=== PATIENT | male | born 1960 | race Caucasian/White ===

== ENCOUNTER 2019-06-22 10:17 | Day surgery (SDC) | payer OTHER ==
[~2019-06-22] VITALS: Ht 180.3 cm; Wt 109.1 kg
[2019-06-22] MEDS ORDERED: ROSU40TA4 (10:24)
[2019-06-22] MEDS ORDERED: TOUJ1.2I (10:24)
[2019-06-22] MEDS ORDERED: DULE100A (10:24)
[2019-06-22] MEDS ORDERED: HUMA50IN4 (10:24)
[2019-06-22] MEDS ORDERED: ASPI81TA85 PO (10:24)
[2019-06-22] MEDS ORDERED: JANU100T (10:24)
[2019-06-22] MEDS ORDERED: VENTAER (10:24)
[2019-06-22] MEDS ORDERED: GLIP10TA6 (10:24)
[2019-06-22] MEDS ORDERED: ZOLP5TAB (10:24)
[2019-06-22] MEDS ORDERED: LISI-538 (10:24)
[2019-06-22] MEDS ORDERED: METF10004 (10:24)
[2019-06-22] MEDS ORDERED: ONDANSETRON 4MG/2ML VIAL (J2405) IV ONE (10:45)
[2019-06-22] MEDS ORDERED: NS 1,000 ML IV ONE (10:45)
[2019-06-22] MEDS ORDERED: KETOROLAC 30 MG/ML VIAL (J1885) IV ONE ×2 (11:00→16:00)
[2019-06-22 11:05] LABS: BASO # 0.1 10^3/uL (0.0-0.2); BASO % 0.4 % (0.0-1.0); EOS # 0.1 10^3/uL (0.0-0.5); EOS % 0.8 % (0.0-3.0); HEMATOCRIT 47.8 % (42.0-52.0); HEMOGLOBIN 14.8 g/dl (13.5-17.5); LYMPH # 2.3 10^3/uL (1.5-5.0); LYMPH % 17.1 % (24.0-44.0); MEAN CORPUSCULAR HEMOGLOBIN 27.7 pg (27.0-33.0); MEAN CORPUSCULAR VOLUME 89.5 fl (80.0-96.0); MONO # 0.8 10^3/uL (0.0-0.8); MONO % 6.1 % (0.0-5.0); NEUTROPHILS # 9.9 10^3/uL (1.5-8.5); NEUTROPHILS % 75.4 % (36.0-66.0); PLATELET COUNT, AUTOMATED 263 10^3/uL (150-450); RED BLOOD COUNT 5.34 10^6/uL (4.30-6.10); WHITE BLOOD COUNT 13.2 10^3/uL (4.0-10.0)
[2019-06-22 11:31] LABS: ALT/SGPT 28 U/L (12-78); BILIRUBIN,DIRECT 0.2 MG/DL (0.0-0.2); BLOOD UREA NITROGEN 14 MG/DL (7-18); CALCIUM LEVEL 9.2 MG/DL (8.5-10.1); CARBON DIOXIDE LEVEL 32 MEQ/L (21-32); CHLORIDE LEVEL 101 MEQ/L (98-107); CREATININE FOR GFR 1.06 MG/DL (0.70-1.30); GLOMERULAR FILTRATION RATE > 60.0 (>56); GLUCOSE, FASTING 249 MG/DL (70-100); LIPASE 75 U/L (73-393); POTASSIUM SERUM 4.3 MEQ/L (3.5-5.1); SODIUM LEVEL 141 MEQ/L (136-145); TOTAL PROTEIN 7.6 GM/DL (6.4-8.2)
[2019-06-22] MEDS ORDERED: PIPERACILLIN/TAZOBACTAM SOD 3.375 GM in D5W MINI-BAG PLUS 50 ML IV ONE (12:30)
[2019-06-22] MEDS ORDERED: ONDANSETRON 4MG/2ML VIAL (J2405) IV PRN ×2 (12:45→20:00)
--- NOTE | 2019-06-22 12:47 | HPEPDOC ---
General Surgery H&P Date of Admission Jun 22, 2019 Attending Physician: NETTA BADILLO MD History and Physical CHIEF COMPLAINT: Abdominal pain HISTORY OF PRESENT ILLNESS: Patient presents himself to the ER today with complaints of overnight history of right flank pain radiating to his groin area with subjective sensation of chills but no fever, nausea or vomiting. Patient reports this started last night, was not feeling well and had to get up multiple times out of bed and to make himself feel comfortable. By the time he woke up this morning that he felt better and he went out to eat but as the morning progressed the pain worsened prompting him to visit the emergency room. Patient denies any prior episodes similar symptoms. He reports mild nausea with the pain. ALLERGIES: Please see below. HOME MEDICATIONS: Please see below. PAST MEDICAL HISTORY: 1. Diabetes. 2. Moderate obesity BMI of 34 3. COPD 4. Hypertension 5. Hypercholesterolemia PAST SURGICAL HISTORY: 1. Carpal tunnel surgery, right. PERSONAL/SOCIAL HISTORY: Denies smoking, alcohol use, or recreational drug use. REVIEW OF SYSTEMS: GENERAL: Denies chills, fatigue, fever, weight gain and weight loss. HEENT: Denies blurred vision and double vision. Denies ear symptoms. Denies hoarseness. NECK: Denies any neck pain. CARDIOVASCULAR: Denies chest pain and palpitations. MUSCULOSKELETAL: Denies arthralgias, back pain and thrombophlebitis. SKIN: Denies rash. NEUROLOGIC: Denies headache, stroke and transient ischemic attack PSYCHIATRIC: Denies anxiety and depression. ENDOCRINE: Patient with diabetes on insulin and oral anti-hypoglycemics. His blood sugar is elevated. HEMATOLOGY/ONCOLOGY: Denies any bleeding or clotting disorder. HEART: Denies any chest pains, palpitations, paroxysmal dyspnea, orthopnea. PULMONARY: Diagnosed with COPD uses his inhaler once or twice a month during exacerbations. He is able to carry on regular activities without any CVA or discomfort. GASTROINTESTINAL: Denies rectal bleeding, family history of colon cancer, constipation, diarrhea, dysphagia, heartburn and jaundice. GENITOURINARY: Denies dysuria, frequency, hematuria and nocturia. ENDOCRINE: Denies polydipsia, polyphagia, polyuria, heat or cold intolerance. INFECTIOUS: Denies any recent upper respiratory tract infection, UTI, need for use of antibiotics. NUTRITION: Reports fair appetite. PHYSICAL EXAMINATION: VITAL SIGNS: Please see below. GENERAL APPEARANCE: Patient seen, anxious, mildly uncomfortable. Awake, alert, oriented. HEENT: Normocephalic, atraumatic. [place] palpebral conjunctivae. Anicteric sclerae. Lips moist. CHEST: No chest wall abnormalities. Normal respiratory motion/effort. NECK: Supple. No thyromegaly. No lymphadenopathies. LUNGS: Lung sounds are clear to auscultation bilaterally. No wheezing appreciated. HEART: No chest wall abnormalities. Heart rate and rhythm are regular with no murmurs. ABDOMEN: Patient is a very rounded abdomen, tense. Tender on palpation on the right lateral abdominal wall with moderate guarding. Nontender on the other side of the abdomen. SKIN: Warm, moist. EXTREMITIES: Extremities have no deformities. No edema identified. NEUROLOGICAL: Awake, alert, oriented. ANCILLARIES: . LABORATORY DATA: Please see below. MICROBIOLOGY: Please see below. IMAGING: Noncontrast CT abdomen and pelvis Evidence for acute appendicitis IMPRESSION AND PLAN: Acute appendicitis with localized peritonitis Patient's history and clinical exam consistent with acute appendicitis most likely retrocecal appendix given the location of the pain and tenderness. He was advised that he needs surgery. Unfortunately 8 breakfast at about 9:30 AM. Aspirin after speaking to anesthesia able to him at 5:30 tonight. He'll continue him on IV Zosyn every 6 hours for coverage for the appendicitis while awaiting surgery. I saw him in the preoperative holding area and explained to him the details of the surgery, expected postoperative course. He has received 1 dose of Zosyn and is about due for another dose of Zosyn which will give during the surgery. Length of antibiotics depend on whether this is perforated or not. Consent obtained from the patient. Vital Signs Vital Signs Date Time Temp Pulse Resp B/P (MAP) Pulse Ox O2 Delivery O2 Flow Rate FiO2 06/22/19 10:46 06/22/19 10:17 97.9 100 18 98 Room Air Laboratory Data Labs 24H Laboratory Tests 2 06/22/19 10:41: Immature Granulocyte % (Auto) 0.2, Neutrophils (%) (Auto) 75.4H, Lymphocytes (%) (Auto) 17.1L, Monocytes (%) (Auto) 6.1H, Eosinophils (%) (Auto) 0.8, Basophils (%) (Auto) 0.4, Neutrophils # (Auto) 9.9H, Lymphocytes # (Auto) 2.3, Monocytes # (Auto) 0.8, Eosinophils # (Auto) 0.1, Basophils # (Auto) 0.1, Nucleated Red Blood Cells % (auto) 0.0, Urine Color YELLOW, Urine Appearance CLEAR, Urine pH 5.0, Urine Specific [place] 1.023, Urine Protein 1+H, Urine Glucose (UA) 3+H, Urine Ketones NEGATIVE, Urine Blood NEGATIVE, Urine Nitrite NEGATIVE, Urine Bilirubin NEGATIVE, Urine Urobilinogen 0.2, Urine Leukocyte Esterase NEGATIVE, Urine WBC (Auto) 0, Urine RBC (Auto) 1, Urine Hyaline Casts (Auto) 0, Urine Bact eria (Auto) NEGATIVE, Urine Squamous Epithelial Cells 1, Urine Mucus (Auto) SMALL, Urine Sperm (Auto) , Anion Gap 8, Glomerular Filtration Rate > 60.0, Calcium Level 9.2, Total Bilirubin 1.0, Direct Bilirubin 0.2, Aspartate Amino Transf (AST/SGOT) 12, Alanine Aminotransferase (ALT/SGPT) 28, Alkaline Phosphatase 55, Total Protein 7.6, Albumin 4.0, Albumin/Globulin Ratio 1.11, Lipase 75 CBC/BMP Laboratory Tests 06/22/19 10:41 Home Medications Scheduled Aspirin (Aspir 81) 81 Mg Tablet.dr, 1 TAB PO DAILY for pain, (Reported) Miscellaneous Medications Albuterol Sulfate (Ventolin Hfa) 18 Gm Hfa.aer.ad, (Reported) Glipizide (Glipizide) 10 Mg Tablet, (Reported) Insulin Glargine,Hum.rec.anlog (Torin Mantilla) 300 Unit/1 Ml Insuln.pen, (Reported) Insulin Lispro (Humalog Kwikpen U-200) 200 Unit/1 Ml Insuln.pen, (Reported) Lisinopril (Lisinopril) 20 Mg Tablet, (Reported) Metformin HCl (Metformin HCl) 1,000 Mg Tablet, (Reported) Mometasone/Formoterol (Dulera 100 Mcg/5 Mcg Inhaler) 13 Gm Hfa.aer.ad, (Reported) Rosuvastatin Calcium (Rosuvastatin Calcium) 40 Mg Tablet, (Reported) Sitagliptin Phosphate (Januvia) 100 Mg Tablet, (Reported) Zolpidem Tartrate (Zolpidem Tartrate) 5 Mg Tablet, (Reported) Allergies Coded Allergies: No Known Allergies (Unverified , 06/22/19) A-FIB/CHADSVASC A-FIB History Current/History of A-Fib/PAF?: No Current PO Anticoag Therapy: No NETTA BADILLO MD Jun 22, 2019 12:47
[2019-06-22] MEDS: LR 1,000 ML IV SCH (13:41)
[2019-06-22] MEDS ORDERED: MORPHINE 4 MG/ML 1ML VIAL/SYRINGE (J2270) IV PRN (14:15)
[2019-06-22 14:30] VITALS: BP 180/88
[2019-06-22] MEDS ORDERED: LIDOCAINE 1% MDV 20ML VIAL As Ordered ONE (16:58)
[2019-06-22] MEDS ORDERED: BUPIVACAINE HCL 0.25% 10 ML VIAL As Ordered ONE (16:58)
[2019-06-22] MEDS ORDERED: ROCURONIUM BROMIDE 50 MG/5 ML VIAL As Ordered ONE (17:11)
[2019-06-22] MEDS ORDERED: LIDOCAINE 2% INJ 100 MG/5 ML SDV (FOR ANES.) As Ordered ONE (17:11)
[2019-06-22] MEDS ORDERED: PROPOFOL 200 MG/20 ML VIAL As Ordered ONE (17:11)
[2019-06-22] MEDS ORDERED: ONDANSETRON 4MG/2ML VIAL (J2405) As Ordered ONE (17:12)
[2019-06-22] MEDS ORDERED: fentaNYL 100 MCG/2 ML INJECTION (J3010) As Ordered ONE ×2 (17:12→18:35)
[2019-06-22] MEDS ORDERED: MIDAZOLAM INJ 2 MG/2 ML VIAL (J2250) As Ordered ONE (17:12)
[2019-06-22] MEDS ORDERED: dexameTHASONE 4 MG/ML 1ML VIAL (J1100) As Ordered ONE (17:12)
[2019-06-22] MEDS ORDERED: ZOSYN 3.375 GM VIAL (J2543) As Ordered ONE (17:31)
[2019-06-22] MEDS ORDERED: SUCCINYLCHOLINE 100 MG/5 ML SYRINGE (J0330) As Ordered ONE (17:44)
[2019-06-22] MEDS: PIPERACILLIN/TAZOBACTAM SOD 3.375 GM in D5W MINI-BAG PLUS 50 ML IV SCH (17:58)
[2019-06-22] MEDS ORDERED: PHENYLephrine HCL 500 MCG/5 ML (100MCG/ML) SYRINGE (J2370) As Ordered ONE (18:03)
[2019-06-22] MEDS ORDERED: GLYCOPYRROLATE INJ 0.2 MG/ML 2 ML VIAL As Ordered ONE (18:17)
[2019-06-22] MEDS ORDERED: ePHEDrine SULFATE 25 MG/5 ML(5MG/ML) SYRINGE As Ordered ONE (18:19)
[2019-06-22] MEDS ORDERED: ACETAMINOPHEN 1000MG 100ML IV BTL (OFIRMEV) (J0131 PER 10MG) As Ordered ONE (19:02)
[2019-06-22] MEDS ORDERED: SUGAMMADEX SODIUM 500 MG/5 ML VIAL (BRIDION) As Ordered ONE (19:02)
[2019-06-22] MEDS ORDERED: GLUCOSE 4 GM CHEW TABLET PO PRN (19:15)
[2019-06-22] MEDS ORDERED: GLUCAGON FOR INJ 1 MG VIAL (J1610) SC PRN (19:15)
[2019-06-22] MEDS ORDERED: DEXTROSE 50% 50 ML SYRINGE IV PRN (19:15)
--- NOTE | 2019-06-22 19:20 | ROOPDOC ---
[facility] Report Of Operation Report of Operation DATE OF PROCEDURE: 06/22/19 PREPROCEDURE DIAGNOSES: acute appendicitis. POSTPROCEDURE DIAGNOSES: acute appendicitis, retrpceca; appendix. PROCEDURE: Laparoscopic Appendectomy. SURGEON: Govind Craig MD [employer] FABRICATOR: MD ANESTHESIA: General Anesthesia ESTIMATED BLOOD LOSS: Approximately 20 mL. COMPLICATIONS: none. REMARKS: . PROCEDURE NOTE: retrocecal appendix. DESCRIPTION OF PROCEDURE: . GOVIND CRAIG MD Jun 22, 2019 19:20
[2019-06-22] MEDS ORDERED: ALBUTEROL 6.7GM INHALER **FOR ANES. CART/OMNICELL ONLY As Ordered ONE (19:33)
[2019-06-22] MEDS ORDERED: fentaNYL 100 MCG/2 ML INJECTION (J3010) IV PRN (20:00)
[2019-06-22] MEDS ORDERED: LR 1,000 ML IV SCH (20:00)
[2019-06-22] MEDS ORDERED: HYDROMORPHONE HCL 0.5 MG/ 0.5 ML SYRINGE (J1170 PER 1) IV PRN (20:00)
[2019-06-22] MEDS ORDERED: PERCOCET 5MG/325MG TAB PO PRN (20:00)
[2019-06-22] MEDS ORDERED: LEVALBUTEROL 1.25 MG/0.5 ML CONCENTRATE NEB As Ordered ONE (20:03)
[2019-06-22] MEDS ORDERED: LEVALBUTEROL 1.25 MG/0.5 ML CONCENTRATE NEB INH ONE (20:15)
[2019-06-22 20:30] VITALS: BP 124/66
[2019-06-22 21:00] VITALS: BP 117/75
[2019-06-22 21:30] VITALS: BP 148/82
[2019-06-22 22:30] VITALS: BP 136/72
[2019-06-22] MEDS ORDERED: ALBUTEROL SULFATE 2.5 MG/0.5 ML INH NEB SOLN NEB PRN (22:30)
[2019-06-22 23:30] VITALS: BP 121/69
[2019-06-23] MEDS: PERCOCET 5MG/325MG TAB PO PRN ×3 (00:20→12:20)
[2019-06-23 01:30] VITALS: BP 137/74
[2019-06-23] MEDS: PIPERACILLIN/TAZOBACTAM SOD 3.375 GM in D5W MINI-BAG PLUS 50 ML IV SCH ×2 (01:48→06:46)
[2019-06-23] MEDS: KETOROLAC 30 MG/ML VIAL (J1885) IV PRN ×2 (03:05→10:02)
[2019-06-23 05:30] VITALS: BP 126/68
[2019-06-23 06:40] LABS: BASO % 0.1 % (0.0-1.0); HEMATOCRIT 42.2 % (42.0-52.0); HEMOGLOBIN 13.2 g/dl (13.5-17.5); LYMPH # 1.1 10^3/uL (1.5-5.0); LYMPH % 8.9 % (24.0-44.0); MEAN CORPUSCULAR HEMOGLOBIN 28.3 pg (27.0-33.0); MEAN CORPUSCULAR HGB CONC 31.3 g/dl (32.0-36.5); MEAN CORPUSCULAR VOLUME 90.6 fl (80.0-96.0); MONO # 0.5 10^3/uL (0.0-0.8); MONO % 4.1 % (0.0-5.0); NEUTROPHILS # 10.5 10^3/uL (1.5-8.5); NEUTROPHILS % 86.5 % (36.0-66.0); PLATELET COUNT, AUTOMATED 245 10^3/uL (150-450); RED BLOOD COUNT 4.66 10^6/uL (4.30-6.10); WHITE BLOOD COUNT 12.1 10^3/uL (4.0-10.0)
[2019-06-23 06:55] LABS: CALCIUM LEVEL 9.1 MG/DL (8.5-10.1); CREATININE FOR GFR 1.46 MG/DL (0.70-1.30); GLOMERULAR FILTRATION RATE 52.8 (>56); POTASSIUM SERUM 4.8 MEQ/L (3.5-5.1)
[2019-06-23] MEDS ORDERED: HumaLOG INSULIN (NovoLOG) PER UNIT SC SCH ×3 (07:30→21:00)
[2019-06-23] MEDS: LR 1,000 ML IV SCH ×2 (07:38→10:03)
--- NOTE | 2019-06-23 07:43 | REP ---
REASON: Right flank pain. The exam is limited by lack of intravenous and oral bowel preparatory contrast administration. The lung bases are clear. There is no nephroureterolithiasis, hydronephrosis, or hydroureter. There are no urinary bladder calcifications. Limited evaluation of the solid intraabdominal organs and gallbladder show no gross abnormalities. Limited evaluation of the pancreas and adrenal glands show no gross abnormalities. There is no free fluid or free air in the abdomen. The appendix is abnormally dilatated with evidence of abnormal wall thickening. There is abnormal thickening of the right lateroconal fascia with thickening of Gerota's and Zuckerkandl's fascia on the right as well. There is no intestinal obstruction. Limited evaluation of the abdominal aorta and paraaortic regions showed no gross abnormalities. CT PELVIS: There is no free fluid or free air. There is no evidence of a mass or adenopathy. Bone window technique throughout the exam shows the osseous structures to be within normal limits for the patient's age. IMPRESSION: Acute appendicitis. Electronically Signed by Jack Muñoz DO 06/23/2019 08:59 A
[2019-06-23 08:00] VITALS: BP 167/74
[2019-06-23] MEDS ORDERED: metFORMIN (GLUCOPHAGE) 1000 MG TABLET PO SCH (08:00)
[2019-06-23] MEDS ORDERED: SITagliptin 50 MG TAB (JANUVIA) PO SCH (09:00)
[2019-06-23] MEDS ORDERED: lisinopriL 20 MG TAB PO SCH (09:00)
[2019-06-23 10:03] VITALS: BP 134/76
[2019-06-23] MEDS ORDERED: PERCOCET PO (11:44)
[2019-06-23] MEDS ORDERED: AUGM875T28 PO (11:44)
== END 2019-06-23 12:45 | disposition home or self-care (01) ==
LOC: M ED 10:17 → M SDC 10:18 → M PED 14:20 → M SDC 06-23 12:45
PROVIDERS: ATTEND Surgery
DX: K35.890 Other acute appendicitis without perforation or gangrene (principal); C7A.020 Malignant carcinoid tumor of the appendix; E11.9 Type 2 diabetes mellitus without complications; I10 Essential (primary) hypertension; J44.9 Chronic obstructive pulmonary disease, unspecified; E78.00 Pure hypercholesterolemia, unspecified; E66.8 Other obesity; Z79.4 Long term (current) use of insulin; Z79.82 Long term (current) use of aspirin; Z79.84 Long term (current) use of oral hypoglycemic drugs; Z79.899 Other long term (current) drug therapy
CPT/HCPCS: 36415; 44970; 74176; 80048; 80076; 81001; 83690; 85025; 88304; 96365; 96366; 96375; 96376; 99284; J0131; J0330; J1100; J1885; J2250; J2270; J2370; J2405; J2543; J3010

== ENCOUNTER → 2020-11-11 | Outpatient (REF) | payer OTHER ==
[~2020-11-11] MED LIST: ASPI81TA86 PO; AUGM875T28 PO; DULE100A; GLIP10TA6; HUMA50IN4; JANU100T; LISI20TA33; METF10004; PERCOCET PO; ROSU40TA4; TOUJ1.2I; VENTAER; ZOLP5TAB
[2020-11-13 08:13] LABS: LDL DIRECT 88 mg/dL (0-99)
== END ==
LOC: M LAB REF 16:03
PROVIDERS: ATTEND Nurse Practitioner Adult Health
DX: E11.65 Type 2 diabetes mellitus with hyperglycemia (principal); E78.00 Pure hypercholesterolemia, unspecified

== ENCOUNTER → 2021-02-17 | Outpatient (CLI) | payer OTHER ==
--- NOTE | 2021-02-17 20:47 | REP ---
INDICATION: RIGHT SIDED PAIN COMPARISON: None. TECHNIQUE: PA and lateral. FINDINGS: The mediastinum and cardiac silhouette are normal. The lung bradford are clear and without acute consolidation, effusion, or pneumothorax. The skeletal structures are intact and normal. IMPRESSION: No acute cardiopulmonary process. <Electronically signed by Bolivar Barrera > 02/17/21 3881
== END ==
LOC: M WUC 14:13
PROVIDERS: ATTEND Nurse Practitioner Adult Health
DX: R07.89 Other chest pain (principal)

== ENCOUNTER 2022-04-25 16:20 | Emergency (ER) | payer OTHER ==
[~2022-04-25] VITALS: Ht 175.3 cm; Wt 103.6 kg
[2022-04-25] MEDS ORDERED: PREG50CA2 PO (16:33)
[2022-04-25] MEDS ORDERED: MONT10TA97 PO (16:33)
[2022-04-25] MEDS ORDERED: BREO1INH INH (16:33)
[2022-04-25 21:02] LABS: BASO # 0.1 10^3/uL (0.0-0.2); BASO % 0.7 % (0.0-1.0); EOS # 0.2 10^3/uL (0.0-0.5); EOS % 1.8 % (0.0-3.0); HEMOGLOBIN 13.8 g/dl (13.5-17.5); LYMPH % 43.4 % (24.0-44.0); MEAN CORPUSCULAR HEMOGLOBIN 28.3 pg (27.0-33.0); MEAN CORPUSCULAR HGB CONC 32.1 g/dl (32.0-36.5); MEAN CORPUSCULAR VOLUME 88.3 fl (80.0-96.0); MONO # 0.8 10^3/uL (0.0-0.8); MONO % 8.5 % (2.0-8.0); NEUTROPHILS # 4.2 10^3/uL (1.5-8.5); NEUTROPHILS % 45.3 % (36.0-66.0); PLATELET COUNT, AUTOMATED 254 10^3/uL (150-450); RED BLOOD COUNT 4.87 10^6/uL (4.30-6.10); WHITE BLOOD COUNT 9.2 10^3/uL (4.0-10.0)
[2022-04-25 21:25] LABS: BLOOD UREA NITROGEN 15 MG/DL (7-18); CARBON DIOXIDE LEVEL 30 MEQ/L (21-32); CHLORIDE LEVEL 105 MEQ/L (98-107); CREATININE FOR GFR 0.98 MG/DL (0.70-1.30); GLOMERULAR FILTRATION RATE > 60.0 (>49); GLUCOSE, FASTING 226 MG/DL (70-100); POTASSIUM SERUM 4.2 MEQ/L (3.5-5.1); SODIUM LEVEL 139 MEQ/L (136-145)
[2022-04-25] MEDS ORDERED: NORCO, ANEXSIA 5/325MG TABLET (HYDROcodone/ACETAMINOPHEN) PO ONE (22:30)
[2022-04-25] MEDS ORDERED: HYDR-3713 PO (22:42)
[2022-04-25 22:53] VITALS: BP 158/78
== END 2022-04-25 22:54 | disposition home or self-care (01) ==
LOC: M ED 16:20
DX: S92.414A Nondisplaced fracture of proximal phalanx of right great toe, initial encounter for closed fracture (principal); S90.421A Blister (nonthermal), right great toe, initial encounter; E11.9 Type 2 diabetes mellitus without complications; J44.9 Chronic obstructive pulmonary disease, unspecified; I10 Essential (primary) hypertension; Z79.4 Long term (current) use of insulin; Z79.84 Long term (current) use of oral hypoglycemic drugs; Z79.899 Other long term (current) drug therapy; Z79.51 Long term (current) use of inhaled steroids; Z79.82 Long term (current) use of aspirin

== ENCOUNTER → 2022-05-04 | Outpatient (CLI) | payer OTHER ==
[~2022-05-04] MED LIST changes: +BREO1INH INH; +HYDR-3713 PO; +MONT10TA97 PO; +PREG50CA2 PO
== END ==
LOC: M SOG 07:49
PROVIDERS: ATTEND Orthopaedic Surgery
DX: S92.411A Displaced fracture of proximal phalanx of right great toe, initial encounter for closed fracture (principal); X58.XXXA Exposure to other specified factors, initial encounter; Y92.9 Unspecified place or not applicable; Y93.9 Activity, unspecified; Y99.9 Unspecified external cause status

== ENCOUNTER → 2022-05-18 | Outpatient (CLI) | payer OTHER | LOC: M SOG 10:12 | PROVIDERS: ATTEND Orthopaedic Surgery | DX: S92.411D Displaced fracture of proximal phalanx of right great toe, subsequent encounter for fracture with routine healing (principal) ==

== ENCOUNTER → 2022-06-10 | Outpatient (CLI) | payer OTHER | LOC: M SOG 08:13 | PROVIDERS: ATTEND Orthopaedic Surgery | DX: S92.411D Displaced fracture of proximal phalanx of right great toe, subsequent encounter for fracture with routine healing (principal) ==

== ENCOUNTER → 2022-07-11 | Outpatient (CLI) | payer OTHER | LOC: M SOG 07:49 | PROVIDERS: ATTEND Orthopaedic Surgery | DX: S92.411D Displaced fracture of proximal phalanx of right great toe, subsequent encounter for fracture with routine healing (principal) ==

== ENCOUNTER → 2023-03-14 | Outpatient (CLI) | payer OTHER ==
[~2023-03-14] MED LIST changes: -DULE100A; +MOME13HF8; -PREG50CA2 PO; +PREG50CA3 PO
== END ==
LOC: M WUC 08:57
PROVIDERS: ATTEND Student in an Organized Health Care Education/Training Program
DX: M54.50 Low back pain, unspecified (principal); M47.817 Spondylosis without myelopathy or radiculopathy, lumbosacral region

== ENCOUNTER → 2023-11-24 | Outpatient (CLI) | payer OTHER ==
[~2023-11-24] MED LIST changes: +GASTROGRAFIN SOLUTION 30ML As Ordered ONE; +ISOVUE-370 76% 100ML VIAL As Ordered ONE; -ROSU40TA4; +ROSU40TA63
== END ==
LOC: M RAD 13:19
PROVIDERS: ATTEND Nurse Practitioner Adult Health
DX: R10.31 Right lower quadrant pain (principal)
CPT/HCPCS: 74178; Q9963; Q9967

== ENCOUNTER 2024-01-10 06:55 | Day surgery (SDC) | payer OTHER ==
[~2024-01-10] VITALS: Ht 177.8 cm; Wt 105.6 kg
[~2024-01-10 06:55] MED LIST changes: +ASPI-226 PO; -GASTROGRAFIN SOLUTION 30ML As Ordered ONE; -GLIP10TA6; +GLIP10TA6 PO; -HUMA50IN4; +HUMA50IN4 SC; -ISOVUE-370 76% 100ML VIAL As Ordered ONE; -LISI20TA33; +LISI20TA33 PO; +LOPE2TAB12 PO; -METF10004; +METF10004 PO; +PANT40TA29 PO; -ROSU40TA63; +ROSU40TA63 PO; +SEMA2PEN SC; +SLOWTAB2 PO; -TOUJ1.2I; +TOUJ1.2I SC; -VENTAER; +VENTAER INH; -ZOLP5TAB; +ZOLP5TAB PO
[2024-01-10] MEDS ORDERED: LIDOCAINE 2% 100MG/5ML SDV (FOR ANES.) As Ordered ONE (07:05)
[2024-01-10] MEDS ORDERED: propofoL 200 MG/20 ML VIAL As Ordered ONE (07:05)
[2024-01-10] MEDS: NS 1,000 ML IV ONE (07:41)
[2024-01-10] MEDS: INSULIN LISPRO (NovoLOG) PER UNIT SC PRN (07:41)
[2024-01-10 08:21] VITALS: TEMP 98.7
[2024-01-10 08:40] VITALS: BP 182/88; O2SAT 98
== END 2024-01-10 08:53 | disposition home or self-care (01) ==
LOC: M OPP 06:55
PROVIDERS: ATTEND Surgery
DX: K63.89 Other specified diseases of intestine (principal); Z85.030 Personal history of malignant carcinoid tumor of large intestine; R19.7 Diarrhea, unspecified; E11.9 Type 2 diabetes mellitus without complications; G47.30 Sleep apnea, unspecified; Z99.89 Dependence on other enabling machines and devices; Z87.891 Personal history of nicotine dependence; Z79.02 Long term (current) use of antithrombotics/antiplatelets; Z79.4 Long term (current) use of insulin; Z79.51 Long term (current) use of inhaled steroids; Z79.52 Long term (current) use of systemic steroids; Z79.891 Long term (current) use of opiate analgesic; Z79.899 Other long term (current) drug therapy
CPT/HCPCS: 45380; 88305; J1815

== ENCOUNTER → 2024-01-11 | Outpatient (CLI) | payer OTHER | LOC: M WUC 11:21 | PROVIDERS: ATTEND Nurse Practitioner Adult Health | DX: M54.50 Low back pain, unspecified (principal) ==

== ENCOUNTER → 2024-02-10 | Outpatient (CLI) | payer OTHER ==
[~2024-02-10] MED LIST changes: +AMOX875T2 PO; +METO1TAB7
== END ==
LOC: M RAD 12:56
PROVIDERS: ATTEND Nurse Practitioner Adult Health
DX: M54.50 Low back pain, unspecified (principal); M47.816 Spondylosis without myelopathy or radiculopathy, lumbar region; M47.817 Spondylosis without myelopathy or radiculopathy, lumbosacral region

== ENCOUNTER 2024-02-11 10:34 | Emergency (ER) | payer OTHER ==
[~2024-02-11] VITALS: Ht 175.3 cm; Wt 105.5 kg
[~2024-02-11 10:34] MED LIST changes: -AMOX875T2 PO; -METO1TAB7
[2024-02-11] MEDS ORDERED: METO1TAB7 (10:49)
[2024-02-11 11:26] LABS: VENOUS BASE EXCESS 1.5 (-2.0-2.0); VENOUS HCO3 29.1 MMOL/L (23.0-27.0); VENOUS O2 SATURATION 42.2 % (60.0-80.0); VENOUS PARTIAL PRESSURE CO2 58.8 mmHg (38.0-50.0); VENOUS PARTIAL PRESSURE O2 25.1 mmHg (30.0-50.0); VENOUS PH 7.313 UNITS (7.330-7.430); VENOUS STANDARD HCO3 24.4 MMOL/L; VENOUS TOTAL CO2 30.9 MMOL/L (24.0-28.0)
[2024-02-11 11:36] LABS: BASO % 0.5 % (0.0-1.0); EOS # 0.1 10^3/uL (0.0-0.5); HEMATOCRIT 41.1 % (42.0-52.0); HEMOGLOBIN 13.9 g/dl (13.5-17.5); LYMPH # 2.3 10^3/uL (1.5-5.0); LYMPH % 28.7 % (24.0-44.0); MEAN CORPUSCULAR HEMOGLOBIN 29.8 pg (27.0-33.0); MEAN CORPUSCULAR HGB CONC 33.8 g/dl (32.0-36.5); MEAN CORPUSCULAR VOLUME 88.2 fl (80.0-96.0); MONO # 0.6 10^3/uL (0.0-0.8); MONO % 7.6 % (2.0-8.0); PLATELET COUNT, AUTOMATED 230 10^3/uL (150-450); RED BLOOD COUNT 4.66 10^6/uL (4.30-6.10)
[2024-02-11 11:45] LABS: ERYTHROCYTE SEDIMENTATION RATE 47 mm/hr (0-20)
[2024-02-11 11:57] LABS: ALBUMIN 3.8 G/DL (3.2-5.2); ALKALINE PHOSPHATASE 72 U/L (46-116); ALT/SGPT 38 U/L (7.0-40); AST/SGOT 24 U/L (<34); BLOOD UREA NITROGEN 12 MG/DL (9-23); CALCIUM LEVEL 8.9 MG/DL (8.3-10.6); CARBON DIOXIDE LEVEL 32 MMOL/L (20-31); CHLORIDE LEVEL 105 MMOL/L (98-107); CREATININE FOR GFR 0.94 MG/DL (0.70-1.30); GLOMERULAR FILTRATION RATE > 60.0 (>49); GLUCOSE, FASTING 195 MG/DL (74-106); POTASSIUM SERUM 3.5 MMOL/L (3.5-5.1); SODIUM LEVEL 139 MMOL/L (136-145); TOTAL PROTEIN 7.2 G/DL (5.7-8.2)
[2024-02-11 12:00] LABS: HEMOGLOBIN A1c 9.9 % (4.0-6.0)
[2024-02-11] MEDS: PIPERACILLIN/TAZOBACTAM SOD 3.375 GM in D5W MINI-BAG PLUS 50 ML IV ONE (13:15)
[2024-02-11] MEDS ORDERED: AMOX875T2 PO (14:51)
[2024-02-11 15:04] VITALS: BP 177/79; TEMP 95; O2SAT 96
== END 2024-02-11 15:14 | disposition home or self-care (01) ==
LOC: M ED 10:34
DX: L03.116 Cellulitis of left lower limb (principal); L84 Corns and callosities; L13.9 Bullous disorder, unspecified; E11.9 Type 2 diabetes mellitus without complications; E78.5 Hyperlipidemia, unspecified; I10 Essential (primary) hypertension; J44.9 Chronic obstructive pulmonary disease, unspecified; G47.33 Obstructive sleep apnea (adult) (pediatric); Z79.2 Long term (current) use of antibiotics; Z79.52 Long term (current) use of systemic steroids; Z79.82 Long term (current) use of aspirin; Z79.811 Long term (current) use of aromatase inhibitors; Z79.4 Long term (current) use of insulin; Z79.899 Other long term (current) drug therapy
CPT/HCPCS: 10060; 73630; 80053; 82803; 83036; 83605; 85025; 85652; 86140; 87040; 87070; 87077; 87186; 96374; 99284; J2543

== ENCOUNTER → 2024-04-15 | Outpatient (CLI) | payer OTHER ==
[~2024-04-15] MED LIST changes: +AMOX875T2 PO; +GLIP10TA15 PO; -GLIP10TA6 PO; +METO1TAB7; -ROSU40TA63 PO; +ROSU40TA81 PO
== END ==
LOC: M RAD 08:05
PROVIDERS: ATTEND Nurse Practitioner Adult Health
DX: Z12.2 Encounter for screening for malignant neoplasm of respiratory organs (principal); F17.211 Nicotine dependence, cigarettes, in remission

== ENCOUNTER 2024-06-04 09:56 | Emergency (ER) | payer OTHER ==
[~2024-06-04] VITALS: Ht 177.8 cm; Wt 114.3 kg
[2024-06-04 10:56] LABS: BASO # 0.1 10^3/uL (0.0-0.2); BASO % 0.6 % (0.0-1.0); EOS # 0.1 10^3/uL (0.0-0.5); EOS % 0.9 % (0.0-3.0); HEMATOCRIT 44.9 % (42.0-52.0); LYMPH % 24.5 % (24.0-44.0); MEAN CORPUSCULAR HEMOGLOBIN 29.6 pg (27.0-33.0); MEAN CORPUSCULAR HGB CONC 33.4 g/dl (32.0-36.5); MEAN CORPUSCULAR VOLUME 88.7 fl (80.0-96.0); MONO # 0.5 10^3/uL (0.0-0.8); MONO % 6.6 % (2.0-8.0); NEUTROPHILS # 5.3 10^3/uL (1.5-8.5); NEUTROPHILS % 65.8 % (36.0-66.0); PLATELET COUNT, AUTOMATED 234 10^3/uL (150-450); RED BLOOD COUNT 5.06 10^6/uL (4.30-6.10); WHITE BLOOD COUNT 8.1 10^3/uL (4.0-10.0)
[2024-06-04] MEDS ORDERED: TIRZ5PEN (10:59)
[2024-06-04] MEDS ORDERED: IPRA2IN NEB (11:01)
[2024-06-04 11:06] LABS: INR 1.06; PROTHROMBIN TIME 14.2 SECONDS (12.5-14.5)
[2024-06-04 11:23] LABS: CK-MB VALUE MASS 1.7 NG/ML (<3.6); LIPASE 30 U/L (12-53)
[2024-06-04 11:26] LABS: ALBUMIN 3.8 G/DL (3.2-5.2); ALKALINE PHOSPHATASE 77 U/L (40-129); ALT/SGPT 51 U/L (7.0-40); AST/SGOT 36 U/L (<34); BILIRUBIN,DIRECT 0.3 MG/DL (<0.4); BILIRUBIN,TOTAL 1.2 MG/DL (0.3-1.2); BLOOD UREA NITROGEN 14 MG/DL (9-23); CALCIUM LEVEL 9.7 MG/DL (8.3-10.6); CARBON DIOXIDE LEVEL 30 MMOL/L (20-31); CHLORIDE LEVEL 101 MMOL/L (98-107); CREATININE FOR GFR 0.86 MG/DL (0.70-1.30); GLOMERULAR FILTRATION RATE > 60.0 (>49); GLUCOSE, FASTING 270 MG/DL (74-106); POTASSIUM SERUM 4.1 MMOL/L (3.5-5.1); SODIUM LEVEL 137 MMOL/L (136-145); TOTAL PROTEIN 7.7 G/DL (5.7-8.2)
[2024-06-04 11:46] LABS: CPK CREATINE PHOSPHOKINASE 245 U/L (46-171); MB/CK RELATIVE INDEX 0.69 (< OR =4)
[2024-06-04] MEDS ORDERED: TIRZ5PEN SC (12:32)
[2024-06-04 12:49] VITALS: BP 145/75; TEMP 98.6; O2SAT 94
== END 2024-06-04 12:58 | disposition home or self-care (01) ==
LOC: M ED 09:56
DX: E11.65 Type 2 diabetes mellitus with hyperglycemia (principal); I10 Essential (primary) hypertension; I44.4 Left anterior fascicular block; I45.81 Long QT syndrome; E78.5 Hyperlipidemia, unspecified; J44.9 Chronic obstructive pulmonary disease, unspecified; G47.30 Sleep apnea, unspecified; F10.10 Alcohol abuse, uncomplicated; Z87.891 Personal history of nicotine dependence; Z79.52 Long term (current) use of systemic steroids; Z79.82 Long term (current) use of aspirin; Z79.899 Other long term (current) drug therapy

== ENCOUNTER → 2024-06-21 | Outpatient (CLI) | payer OTHER ==
[~2024-06-21] MED LIST changes: +GASTROGRAFIN SOLUTION 30ML ONE; +IPRA2IN NEB; +ISOVUE-370 76% 100ML VIAL ONE; +TIRZ5PEN; +TIRZ5PEN SC
== END ==
LOC: M PLAIMG 11:10
PROVIDERS: ATTEND Nurse Practitioner Adult Health
DX: R10.9 Unspecified abdominal pain (principal); K76.0 Fatty (change of) liver, not elsewhere classified
CPT/HCPCS: 74178; Q9963; Q9967

== ENCOUNTER → 2024-08-07 | Outpatient (CLI) | payer OTHER ==
[~2024-08-07] MED LIST changes: -GASTROGRAFIN SOLUTION 30ML ONE; -ISOVUE-370 76% 100ML VIAL ONE
== END ==
LOC: M WHC 14:14
PROVIDERS: ATTEND Nurse Practitioner Adult Health
DX: R22.2 Localized swelling, mass and lump, trunk (principal)

== ENCOUNTER 2024-09-11 14:02 | Emergency (ER) | payer OTHER ==
[~2024-09-11] VITALS: Ht 177.8 cm; Wt 113.6 kg
[~2024-09-11 14:02] MED LIST changes: -CLON-589; -LIDOCAINE 1% MDV 20ML VIAL As Ordered ONE
[2024-09-11] MEDS ORDERED: CLON-589 (14:11)
[2024-09-11 14:14] VITALS: TEMP 99.1
[2024-09-11 14:52] VITALS: BP 158/80; O2SAT 95
== END 2024-09-11 15:11 | disposition home or self-care (01) ==
LOC: M ED 14:02
DX: I10 Essential (primary) hypertension (principal); I44.4 Left anterior fascicular block; I45.81 Long QT syndrome; K21.9 Gastro-esophageal reflux disease without esophagitis; E78.5 Hyperlipidemia, unspecified; E11.9 Type 2 diabetes mellitus without complications; M54.50 Low back pain, unspecified; Z79.82 Long term (current) use of aspirin; Z79.52 Long term (current) use of systemic steroids; Z79.4 Long term (current) use of insulin; Z79.899 Other long term (current) drug therapy

== ENCOUNTER → 2024-09-11 | Outpatient (CLI) | payer OTHER ==
[~2024-09-11] MED LIST changes: +CLON-589; +LIDOCAINE 1% MDV 20ML VIAL As Ordered ONE
[2024-09-11 13:13] VITALS: BP 218/108
[2024-09-11] MEDS: cloNIDine 0.1MG TABLET PO ONE (13:13)
[2024-09-11 15:13] VITALS: TEMP 97.9
[2024-09-11 16:06] VITALS: BP 170/84; O2SAT 94
== END ==
LOC: M IRPRO 12:25
PROVIDERS: ATTEND Nurse Practitioner Adult Health
DX: D48.7 Neoplasm of uncertain behavior of other specified sites (principal); R59.9 Enlarged lymph nodes, unspecified

== ENCOUNTER → 2024-10-15 | Outpatient (CLI) | payer OTHER ==
[~2024-10-15] MED LIST changes: +CLON-589; +ISOVUE-370 76% 100ML VIAL ONE
== END ==
LOC: M PLAIMG 08:29
PROVIDERS: ATTEND Nurse Practitioner Adult Health
DX: R59.9 Enlarged lymph nodes, unspecified (principal); K76.0 Fatty (change of) liver, not elsewhere classified; R91.1 Solitary pulmonary nodule
CPT/HCPCS: 71260; 74177; Q9967